=== PATIENT | male | born 1975 | race Caucasian/White ===

== ENCOUNTER 2019-12-24 03:13 | Emergency (ER) | payer SELFPAY ==
[2019-12-24 03:21] VITALS: BP 146/105; PULSE 62; TEMP 98.5; BMI 25.7
--- NOTE | 2019-12-24 03:47 | PDOC ---
History of Present Illness - General Chief Complaint: Ear Problem Stated Complaint: RT EAR PAIN Time Seen by Provider: 12/24/19 03:22 History Source: Patient Exam Limitations: No Limitations - History of Present Illness Initial Comments: 12/24/19 03:41 This is a 44-year-old male who comes in complaining of right ear pain. Patient does have a history of right otitis media in the past. Patient denies any fevers or chills. Patient denies any other complaints. Allergies: as per nursing notes Past Medical History: none Social history: Lives with family. No smoking. No alcohol. No illicit drugs. Surgical history: None General: No fevers or chills, no weakness, no weight loss HEENT: No change in vision. No sore throat,. + Right ear pain CardioVascular: no chest discomfort. No shortness of breath Respiratory:No cough, or wheezing. Gastrointestinal: no nausea, vomiting, diarrhea or constipation, No rectal bleeding Genitourinary: No dysuria, hematuria, or frequency Musculoskeletal: No joint or muscle pain or swelling Neurologic: No headache, vertigo, dizziness or loss of consciousness Psychiatric: nor depression Skin: No rashes or easy bruising Endocrine: no increased thirst or abnormal weight change Allergic: no skin or latex allergy All other systems reviewed and normal GENERAL: The patient is awake, alert, and fully oriented, in no acute distress. HEAD: Normal with no signs of trauma. Ears: Right external ear canal is inflamed there is no discharge. EYES: Pupils equal, round and reactive to light, extraocular movements intact, sclera anicteric, conjunctiva clear. EXTREMITIES:atraumatic, Normal range of motion, no edema. NEUROLOGICAL: Normal speech, normal gait. PSYCH: Normal mood, normal affect. SKIN: Warm, Dry, normal turgor, no rashes or lesions noted Assessment and plan: This is a 44-year-old male with a right otitis externa externa patient given antibiotic drops and discharged.. Past History - Past Medical History Allergies/Adverse Reactions: Allergies Allergy/AdvReac Type Severity Reaction Status Date / Time No Known Allergies Allergy Unverified 12/24/19 03:15 Home Medications: Ambulatory Orders Neomycin/Polymyxn/Hc [Cortisporin Otic Solution -] 4 drop AD Q4HWA #1 bottle COPD: No - Psycho Social/Smoking Cessation Hx Smoking History: Former smoker Have you smoked in the past 12 months: Yes Information on smoking cessation initiated: Yes *Physical Exam - Vital Signs Last Vital Signs Temp Pulse Resp BP Pulse Ox 98.5 F 62 16 146/105 H 99 12/24/19 03:15 12/24/19 03:15 12/24/19 03:15 12/24/19 03:15 12/24/19 03:15 Discharge - Discharge Information Problems reviewed: Yes Clinical Impression/Diagnosis: Right otitis externa Condition: Stable Disposition: HOME - Admission No - Follow up/Referral - Patient Discharge Instructions Additional Instructions: Put 4 drops in the right ear 4 times a day until symptoms resolve. Return to the emergency department immediately with ANY new, persistent or worsening symptoms. Continue any medications as previously prescribed by your physician. You should follow up with your primary doctor as soon as possible regarding today's emergency department visit. . Please make sure your doctor reviews the results of your emergency evaluation. Thank you for coming to the Emergency Department today for your care. It was a pleasure to see you today. Please note that your evaluation is INCOMPLETE until you follow-up with your doctor. - Post Discharge Activity
[2019-12-24] MEDS ORDERED: IBUPROFEN 400 MG TABLET (FP) PO ONE ×2 (03:50→03:51)
[2019-12-24] MEDS ORDERED: NEOMYCIN/POLYMYXN/HC OTIC SOLUTION 10 ML BOTTLE AD SCH (06:00)
== END 2019-12-24 03:52 | disposition home or self-care (01) ==
LOC: FER 03:13
DX: H60.91 Unspecified otitis externa, right ear (principal); Z87.891 Personal history of nicotine dependence
CPT/HCPCS: 99281-25